=== PATIENT | female | born 1945 | race Caucasian/White ===

== ENCOUNTER → 2016-11-26 | Outpatient (CLI) | payer BC ==
[~2016-11-26] MED LIST: ADULT LOW DOSE81 MG PO; ATENOLOL 100MG100 M2 PO; FISH OIL SOFTG1 EACH PO; IMDUR 30 MG TAB30 M1 PO; MENEST0.3 MG PO; PLAVIX 75 MG TA75 MG PO; PROMETRIUM; VITAMIN D 5050000 I1 PO
== END ==
LOC: RAD 04:27
DX: Z12.31 Encounter for screening mammogram for malignant neoplasm of breast (principal)

== ENCOUNTER → 2019-01-08 | Outpatient (CLI) | payer OTHER | LOC: RAD 01:33 | DX: Z12.31 Encounter for screening mammogram for malignant neoplasm of breast (principal) ==

== ENCOUNTER → 2020-02-18 | Outpatient (CLI) | payer OTHER | LOC: BC 12:38 | PROVIDERS: ATTEND Family Medicine | DX: Z12.31 Encounter for screening mammogram for malignant neoplasm of breast (principal) ==

== ENCOUNTER → 2021-03-17 | Outpatient (CLI) | payer OTHER | LOC: BC 09:54 | DX: Z12.31 Encounter for screening mammogram for malignant neoplasm of breast (principal) ==